=== PATIENT | female | born 1965 | race Two or more races ===

== ENCOUNTER → 2024-06-29 | Outpatient (CLI) | payer MEDICAID, SELFPAY ==
--- NOTE | 2024-06-29 08:55 | XR_ITS ---
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 Nonobstructive bowel gas pattern Patient swallowed thin barium with 21 spot films obtained of the esophagus and stomach Fluoroscopy 0.14 minute Primary peristaltic esophageal waves noted Secondary and tertiary esophageal contractions Moderate intermittent gastroesophageal reflux Moderate sliding esophageal hernia Stricture gastroesophageal junction 30% No gastric mass deformity or ulceration Duodenal bulb expands symmetrically duodenal sweep unremarkable IMPRESSION: Esophageal dysmotility Moderate intermittent gastroesophageal reflux Moderate sliding esophageal hernia Stricture or gastroesophageal junction 30% No gastric or duodenal mass deformity or ulceration
== END | disposition home or self-care (01) ==
PROVIDERS: PCP Physician Assistant; Referring Provider Physician Assistant; Visit Provider Physician Assistant
DX: K44.9 Diaphragmatic hernia without obstruction or gangrene (principal); K22.2 Esophageal obstruction; K22.89 Other specified disease of esophagus
CPT/HCPCS: 74240

== ENCOUNTER 2025-01-17 13:29 | Emergency (ER) | payer MEDICAID, SELFPAY ==
[2025-01-17 13:32] VITALS: BMI 26.3
[2025-01-17 13:41] VITALS: BP 135/75; PULSE 78; RESP 16; TEMP 37.1; O2SAT 97
[2025-01-17 14:04] LABS: Basophils % (Auto) 0 % (0-2.5); Eosinophils # (Auto) 0.1 Thou/mm3 (0.0-0.5); Eosinophils % (Auto) 2 % (0-10); Hematocrit 38.7 % (36.0-46.0); Immature Granulocytes % (Auto) 0 % (0-0); Lymphocytes # (Auto) 0.8 Thou/mm3 (1.0-4.8); Lymphocytes % (Auto) 22 % (10-50); Mean Corpuscular HGB Conc 33.6 g/dl (31.0-37.0); Mean Corpuscular Hemoglobin 27.8 pg (25.0-35.0); Mean Corpuscular Volume 83 fL (80-100); Monocytes # (Auto) 0.3 Thou/mm3 (0.0-0.8); Monocytes % (Auto) 8 % (0-12); Neutrophils # (Auto) 2.4 Thou/mm3 (1.8-7.7); Neutrophils % (Auto) 68 % (37-80); Nucleated Red Blood Cell % 0 /100 WBC (0); Platelet Count 191 Thou/mm3 (140-440); RDW Standard Deviation 41.4 fL (36.4-46.3); Red Blood Count 4.68 Miln/mm3 (4.00-5.20); White Blood Count 3.6 Thou/mm3 (3.6-11.0)
[2025-01-17 14:19] LABS: Partial Thromboplastin Time 24.7 Seconds (22.0-36.0); Prothrombin Time 10.9 Seconds (9.0-12.2)
[2025-01-17 14:22] LABS: Alanine Aminotransferase 17 U/L (10-49); Albumin, Serum 4.7 gm/dL (3.5-5.0); Albumin/Globulin Ratio 1.7 (1.2-2.2); Alkaline Phosphatase 73 U/L (46-116); Anion Gap 8 (7-16); Aspartate Amino Transferase 21 U/L (0-34); BUN/Creatinine Ratio 11 Ratio (12-20); Bilirubin,Total 0.5 mg/dL (0.3-1.2); Blood Urea Nitrogen 8 mg/dL (9-23); Calcium 9.7 mg/dL (8.3-10.6); Calcium (Corrected) 9.7 mg/dL (8.5-10.1); Carbon Dioxide 26.1 mMol/L (20.0-31.0); Chloride 105 mMol/L (98-107); Creatinine (Component) 0.7 mg/dL (0.6-1.3); Estimated Creatinine Clearance 78.7 mL/min (>60); Globulin 2.8 gm/dL (2.3-3.5); Glucose 94 mg/dL (74-106); Osmolality,Calculated 275 (275-295); Potassium 3.5 mMol/L (3.4-5.1); Sodium 139 mMol/L (136-145); Total Protein 7.5 gm/dL (5.7-8.2); eGFR > 60 See Note
--- NOTE | 2025-01-17 14:42 | PD.EDADULT ---
ED General RME/HPI General Chief complaint: General Adult/Misc Complain Stated complaint: SENT BY DR KAPLAN FOR [place] Time Seen by Provider: 01/17/25 13:52 Arrival date/time: 01/17/25 13:29 59-year-old female presents the emergency department today with complaints of swelling to the left lower extremity patient reports history of cancer requiring chemo and radiation Limitations: no limitations Related Data Home Medications ?Medication ?Instructions ?Recorded ?Confirmed amlodipine 5 mg tablet 5 mg PO QDAY 04/20/24 04/20/24 calcium carb-ergocalciferol (vit 1 tab PO BID 04/20/24 04/20/24 D2) 600 mg calcium-200 unit tablet cetirizine 10 mg tablet 10 mg PO QDAY 04/20/24 04/20/24 lisinopril 20 mg tablet 20 mg PO BID 04/20/24 04/20/24 magnesium oxide 400 mg (241.3 mg 400 mg PO QDAY 04/20/24 04/20/24 magnesium) tablet omeprazole 20 mg tablet,delayed 20 mg PO QDAY 04/20/24 04/20/24 release Previous Rx's ?Medication ?Instructions ?Recorded docusate sodium 100 mg capsule 100 mg PO BID #40 caps 04/21/24 (Colace) hydrocodone 5 mg-acetaminophen 325 1 tab PO Q6H PRN pain (scale score 04/21/24 mg tablet 7-10) #15 tabs ibuprofen 600 mg tablet 600 mg PO Q8H PRN pain (scale 04/21/24 score 4-6) #15 tabs apixaban 5 mg tablet (Eliquis) 10 mg (2 x 5 mg) PO BID 7 days #28 01/17/25 tabs Allergies Allergy/AdvReac Type Severity Reaction Status Date / Time No Known Allergies Allergy Verified 01/17/25 13:35 Review of Systems Review of Systems Systems Reviewed: All systems reviewed, normal except as documented Constitutional Constitutional: Reports system reviewed and no additional complaints, except as documented, Denies fever(s) and Denies headache(s) Eyes Eyes: Reports system reviewed and no additional complaints, except as documented and Denies blurry vision ENT Ears, Nose, Mouth, and Throat: Reports system reviewed and no additional complaints, except as documented, Denies headache(s), Denies nasal congestion and Denies nasal discharge Cardiovascular Cardiovascular: Reports system reviewed and no additional complaints, except as documented, Denies chest pain and Denies dyspnea Respiratory Respiratory: Reports system reviewed and no additional complaints, except as documented, Denies chest congestion, Denies cough and Denies dyspnea Gastrointestinal Gastrointestinal: Reports system reviewed and no additional complaints, except as documented and Denies abdominal pain Musculoskeletal Musculoskeletal: Reports system reviewed and no additional complaints, except as documented, Denies abnormal gait, Denies arthralgias, Denies deformity, Denies joint swelling and Reports other (Venous engorgement left lower extremity) Integumentary/Breasts Skin/Breast: Reports system reviewed and no additional complaints, except as documented and Denies rash Neurologic Neurologic: Reports system reviewed and no additional complaints, except as documented, Reports as per HPI, Denies abnormal gait and Denies headache(s) Past Medical History Past Medical History NEUROLOGIC: Negative Neurological Disorders or Seizures CARDIAC: Positive Cardiac Disorders and Hypertension; Negative Congestive Heart Failure RESPIRATORY: Negative Chronic Obstructive Pulmonary Disease (COPD) GASTROINTESTINAL: Negative Gastrointestinal Disorders or Hepatitis GENITOURINARY: Negative Genitourinary Disorders or Renal Disease REPRODUCTIVE: Positive Breast Cancer (Left) and Previous Pregnancies MUSCULOSKELETAL: Negative Musculoskeletal Disorders ENDOCRINE: Negative Endocrine Disorders, Diabetes Mellitus Type 1 or Diabetes Mellitus Type 2 HEMATOLOGIC: Negative Blood Disorders OTHER HISTORY: Positive Cancer and Breast Cancer (Left); Negative Hospitalization, Autoimmune Disease, Shingles, Blood Transfusions, Blood Transfusion Reaction or Anesthesia Reactions Family History FAMILY HISTORY: Positive Family Cardiac Disorders and Family Surgery; Negative Family Psychiatric Problems, Family Respiratory Disorders, Family Gastrointestinal Problems, Family Cancer or Family Anesthesia Reaction Surgical History SURGICAL: Positive Tubal Ligation and Section (x3) Social History SMOKING STATUS: Never smoker ED Exam General Limitations: Present no limitations General appearance: Present alert and in no apparent distress Head Head exam: Present atraumatic Eye Eye exam: Present normal appearance, PERRL and EOMI ENT ENT exam: Present normal exam, normal oropharynx and mucous membranes moist Neck Neck exam: Present normal inspection, full ROM and trachea midline Chest Chest inspection: Present normal inspection and symmetric chest wall rise Respiratory Respiratory exam: Present normal lung sounds bilaterally Cardiovascular Cardiovascular exam: Present regular rate, normal rhythm and normal heart sounds Abdominal Exam Abdominal exam: Present soft and normal bowel sounds Extremities Exam Extremities exam: Present normal inspection and full ROM Back Exam Back exam: Present normal inspection and full ROM Neurological Exam Neurological exam: Present alert, oriented X3 and CN II-XII intact Psychiatric Psychiatric exam: Present normal affect and normal mood Skin Skin exam: Present warm and dry Expanded Skin Exam Body image:  1. Venous engorgement mild erythema left lower extremity Course Quality Measures none Orders Category Date Time Status CBC Stat Lab 01/17/25 13:55 Completed Comprehensive Metabolic Panel Stat Lab 01/17/25 13:55 Completed Partial Thromboplastin Time Stat Lab 01/17/25 13:55 Completed Prothrombin Time with INR Stat Lab 01/17/25 13:55 Completed Vital Signs Vital signs: Vital Signs Temperature 98.7 F 01/17/25 13:41 Pulse Rate 78 01/17/25 13:41 Respiratory Rate 16 01/17/25 13:41 Blood Pressure 135/75 H 01/17/25 13:41 Pulse Oximetry (%) 97 01/17/25 13:41 Oxygen Delivery Method Room Air 01/17/25 13:41 O2 saturation 97% on room air within normal limits Discharge Plan Plan Patient Disposition: HOME (Self Care) Discharge Disposition comment: Stable Prescriptions/Referrals Prescriptions/Med Rec: New Eliquis 5 mg tablet 10 mg PO BID 7 Days Qty: 28 0RF No Action cetirizine 10 mg Tablet 10 mg PO QDAY lisinopril 20 mg Tablet 20 mg PO BID amlodipine 5 mg Tablet 5 mg PO QDAY magnesium oxide 400 mg (241.3 mg magnesium) Tablet 400 mg PO QDAY calcium carbonate-vitamin D2 600 mg calcium- 200 unit Tablet 1 tab PO BID omeprazole 20 mg Tablet,Delayed Release (Dr/Ec) 20 mg PO QDAY docusate sodium [Colace] 100 mg capsule 100 mg PO BID Qty: 40 0RF ibuprofen 600 mg tablet 600 mg PO Q8H PRN (Reason: pain (scale score 4-6)) Qty: 15 0RF hydrocodone-acetaminophen 5-325 mg tablet 1 tab PO Q6H MDD 4 PRN (Reason: pain (scale score 7-10)) Qty: 15 0RF Problem List Clinical Impression: Left leg DVT Patient/Caregiver Discharge Instructions Education Materials: DVT Dc Additional Instructions: Please follow up with your primary care doctor in the next 24-48hrs for any worsening symptoms return here immediately You are given the starting dose of your Eliquis you must continue taking the medication even after the initial dosing is finished you must follow-up with your PCP for further evaluation and treatment If you develop any chest pain or shortness of breath or abnormal bleeding return immediately Print Language: Maldivian Stand Alone Forms: Sarahi Award Info., Patient Portal Info Letter PA/PRODUCT DELIVERY SPECIALIST Supervising Physician PA/PRODUCT DELIVERY SPECIALIST Supervising Physician: Dr. raymundo [facility] Narrative [facility] hospital course: 59-year-old female presents the emergency department today with complaints of swelling to the left lower extremity patient reports history of cancer requiring chemo and radiation On exam patient well-appearing patient does not appear toxic no acute distress patient does have mild swelling to left lower extremity with vein engorgement Patient had an outpatient ultrasound today which shows DVT Patient reports no pain at this time patient is well-appearing reports no chest pain shortness of breath or abdominal pain Lab work obtained no acute emergent findings noted patient started on Eliquis I explained to the patient although I gave her 1 week supply of Eliquis she must follow-up with her doctor this couple of days because she will need to continue the Eliquis beyond 1 week Clinical Information Provided by patient Medical Records Reviewed [facility] Meds/Rx Considered, not Ordered Describe details: Given Labs/Rad/Tests considered, not Ordered Describe details: Obtained Chronic Illness/Social Conditions which may negatively complicate care or outcome(s)-explain: None or not applicable EKG EKG not done Lab Interpretation Labs: interpreted by me Imaging Imaging interpretation: see narrative above Medication Administration(s) Given Diagnosis Differential diagnosis: DVT, abscess, cellulitis Differential dx and/or dx ruled out: Abscess, cellulitis, DVT Most likely dx, and/or detailed dx discussion: DVT Dispositon Disposition: Discharge Home
== END 2025-01-17 14:56 | disposition home or self-care (01) ==
LOC: SERX 14:58
PROVIDERS: Nurse Practitioner Primary Care; Emergency Provider Family Medicine
DX: I82.402 Acute embolism and thrombosis of unspecified deep veins of left lower extremity (principal)
CPT/HCPCS: 36415; 80053; 85025; 85610; 85730; 99283

== ENCOUNTER → 2025-01-17 | Outpatient (CLI) | payer MEDICAID, SELFPAY ==
--- NOTE | 2025-01-17 12:16 | XR_ITS ---
Examination: Duplex scan of the lower extremity, unilateral left Date and time of exam: January 17, 2025 1253 hours INDICATIONS: Left lower leg discoloration pain and swelling beginning 4 years ago Technique: Duplex scan of the extremity veins using B-mode/grayscale imaging and Doppler spectral analysis and color flow Attention is directed to internal echogenicity, compression and augmentation involving these veins, color flow assessment, spectral analysis Findings: Positive for nonocclusive thrombus in the mid and distal left superficial femoral, left popliteal left peroneal veins IMPRESSION: Positive for fairly extensive nonocclusive deep vein thrombus
== END | disposition home or self-care (01) ==
PROVIDERS: PCP Physician Assistant; Referring Provider Physician Assistant; Visit Provider Physician Assistant
DX: I82.412 Acute embolism and thrombosis of left femoral vein (principal); I82.432 Acute embolism and thrombosis of left popliteal vein; I87.302 Chronic venous hypertension (idiopathic) without complications of left lower extremity
CPT/HCPCS: 93971